=== PATIENT | female | born 1965 | race Caucasian/White ===

== ENCOUNTER 2020-09-16 10:46 | Outpatient (RCR) | payer OTHER | END 2020-10-26 | disposition home or self-care (01) | LOC: WSOH | DX: M70.831 Other soft tissue disorders related to use, overuse and pressure, right forearm (principal); E78.00 Pure hypercholesterolemia, unspecified; I10 Essential (primary) hypertension; K21.9 Gastro-esophageal reflux disease without esophagitis; F17.210 Nicotine dependence, cigarettes, uncomplicated; Z98.890 Other specified postprocedural states; Y99.0 Civilian activity done for income or pay ==

== ENCOUNTER 2020-12-20 13:11 | Outpatient (RCR) | payer OTHER | END 2020-12-21 16:03 | LOC: WSOH 13:11 | DX: M70.831 Other soft tissue disorders related to use, overuse and pressure, right forearm (principal); R20.8 Other disturbances of skin sensation; E78.00 Pure hypercholesterolemia, unspecified; I10 Essential (primary) hypertension; K21.9 Gastro-esophageal reflux disease without esophagitis; F17.210 Nicotine dependence, cigarettes, uncomplicated; Y99.0 Civilian activity done for income or pay; Z98.890 Other specified postprocedural states ==